=== PATIENT | female | born 1970 | race African-American/Black ===

== ENCOUNTER 2018-04-27 10:15 | Emergency (ER) | payer OTHER ==
[2018-04-27 10:21] VITALS: BP 130/87
[2018-04-27] MEDS ORDERED: DIAZEPAM INJ 10 MG/2 ML DISP.SYRIN IM ONE (11:15)
[2018-04-27] MEDS ORDERED: KETOROLAC TROMETHAMINE 60 MG/2 ML SDV IM ONE (11:15)
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
== END 2018-04-27 12:08 | disposition home or self-care (01) ==
LOC: ER 10:15
DX: T14.8XXA Other injury of unspecified body region, initial encounter (principal); M25.559 Pain in unspecified hip; M54.89 Other dorsalgia; V89.2XXA Person injured in unspecified motor-vehicle accident, traffic, initial encounter; F17.200 Nicotine dependence, unspecified, uncomplicated
CPT/HCPCS: 99283; 96372; J3360; J1885

== ENCOUNTER 2019-01-08 11:56 | Emergency (ER) | payer OTHER ==
[2019-01-08] MEDS ORDERED: IBUPROFEN 800 MG TABLET PO ONE (12:37)
[2019-01-08] MEDS ORDERED: VALACYCLOVIR HCL 500 MG TABLET PO ONE (12:37)
[2019-01-08] MEDS ORDERED: CLINDAMYCIN HCL 150 MG CAPSULE PO ONE (12:37)
--- NOTE | 2019-01-08 12:41 | ER Document Report ---
HPI - HPI Patient complains to provider of: rash Time Seen by Provider: 01/08/19 12:22 Onset: Other - 1 month Onset/Duration: Worse Quality of pain: Achy Pain Level: 4 Context: Patient complains of painful rash to scalp that has been worsening over the past month. Patient does complain of some headache pain. Patient states she has a history of abscess. Patient denies any fever. Associated Symptoms: Headache, Other - Rash to scalp. denies: Fever Exacerbated by: Denies Relieved by: Denies Similar symptoms previously: No Recently seen / treated by doctor: No - ROS ROS below otherwise negative: Yes Systems Reviewed and Negative: Yes All other systems reviewed and negative - CONSTITUTIONAL Constitutional: REPORTS: Fever - 2 DAYS AGO. DENIES: Chills - EENT EENT: DENIES: Sore Throat, Ear Pain, Eye problems - NEURO Neurology: REPORTS: Headache. DENIES: Vision blurred, Dizzinesss / Vertigo - RESPIRATORY Respiratory: DENIES: Trouble Breathing, Coughing - GASTROINTESTINAL Gastrointestinal: DENIES: Nausea - MUSCULOSKELETAL Musculoskeletal: DENIES: Extremity pain, Back Pain, Neck Pain - DERM Skin Color: Normal Skin Problems: Rash Past Medical History - General Information source: Patient - Social History Smoking Status: Current Every Day Smoker Chew tobacco use (# tins/day): No Smoking Education Provided: Yes Frequency of alcohol use: None Drug Abuse: None Occupation: health care Family History: Reviewed & Not Pertinent Patient has suicidal ideation: No Patient has homicidal ideation: No Pulmonary Medical History: Reports: Hx Asthma Renal/ Medical History: Denies: Hx Peritoneal Dialysis Past Surgical History: Reports: Hx Section, Hx Gynecologic Surgery - cervical cancer cell removal - Immunizations Immunizations up to date: No Hx Diphtheria, Pertussis, Tetanus Vaccination: Yes Vertical Provider Document - CONSTITUTIONAL Agree With Documented VS: Yes Exam Limitations: No Limitations General Appearance: WD/WN, No Apparent Distress - INFECTION CONTROL TRAVEL OUTSIDE OF THE [place] IN LAST 30 DAYS: No - HEENT HEENT: Atraumatic, Normocephalic. negative: Pharyngeal Tenderness - NECK Neck: Normal Inspection, Supple. negative: Lymphadenopathy-Left, Lymphadenopathy-Right - RESPIRATORY Respiratory: Breath Sounds Normal, No Respiratory Distress - CARDIOVASCULAR Cardiovascular: Regular Rate, Regular Rhythm - BACK Back: Normal Inspection - MUSCULOSKELETAL/EXTREMETIES Musculoskeletal/Extremeties: MAEW - NEURO Level of Consciousness: Awake, Alert, Appropriate Motor/Sensory: No Motor Deficit - DERM Integumentary: Warm, Dry, Rash - With multiple erythematous papular lesions to scalp, most concentrated to right occipital area although patient with scattered lesions to entire scalp.. negative: Abscess Course - Re-evaluation Re-evalutation: 01/08/19 12:38 Patient does report a history of abscesses in the past. Patient has papular rash that is tender worrisome for possible folliculitis although cannot exclude shingles at this time. Patient agreeable with treating for both folliculitis as well as possible shingles. Good return precautions discussed with patient. No concern for zoster ophthalmicus, abscess or meningitis at this time Discharge - Discharge Clinical Impression: Skin rash Condition: Stable Disposition: HOME, SELF-CARE Instructions: Clindamycin ([facility]), Folliculitis ([facility]), Shingles ([facility]) Additional Instructions: Return immediately for any new or worsening symptoms Followup with your primary care provider, call tomorrow to make a followup appointment Avoid scratching at the skin Prescriptions: Clindamycin HCl [Cleocin 300 mg Capsule] 300 mg PO TID #21 capsule Naproxen [Naprosyn 250 Nmg Tablet] 1 tab PO BID #14 tablet Valacyclovir HCl [Valacyclovir] 1,000 mg PO TID #21 tablet Forms: Return to Work Referrals: [facility] [Provider Group] - Follow up tomorrow
== END 2019-01-08 13:06 | disposition home or self-care (01) ==
LOC: ER 11:56
DX: R21 Rash and other nonspecific skin eruption (principal); R51 Headache; F17.200 Nicotine dependence, unspecified, uncomplicated; J45.909 Unspecified asthma, uncomplicated
CPT/HCPCS: 99282

== ENCOUNTER 2019-03-05 15:35 | Emergency (ER) | payer SELFPAY ==
--- NOTE | 2019-03-05 18:49 | ER Document Report ---
HPI - HPI Time Seen by Provider: 03/05/19 18:19 Pain Level: 5 Notes: Clinic patient is a 48-year-old female presented to the emergency department with chief complaint of multiple sores to her scalp, neck and between her breasts. Patient reports she was seen here several months ago for the same symptoms and given medication which completely cleared up. Patient reports the areas are painful and itchy. Patient denies any nausea, vomiting, diarrhea, fever or other illness. - REPRODUCTIVE Reproductive: DENIES: : Past Medical History - General Information source: Patient - Social History Smoking Status: Current Every Day Smoker Chew tobacco use (# tins/day): No Frequency of alcohol use: None Drug Abuse: None Family History: Reviewed & Not Pertinent Patient has suicidal ideation: No Patient has homicidal ideation: No Pulmonary Medical History: Reports: Hx Asthma Renal/ Medical History: Denies: Hx Peritoneal Dialysis Past Surgical History: Reports: Hx Section, Hx Gynecologic Surgery - cervical cancer cell removal - Immunizations Immunizations up to date: No Hx Diphtheria, Pertussis, Tetanus Vaccination: Yes Vertical Provider Document - CONSTITUTIONAL Notes: PHYSICAL EXAMINATION: GENERAL: Well-appearing, well-nourished and in no acute distress. HEAD: Atraumatic, normocephalic. EYES: Pupils equal round extraocular movements intact, conjunctiva are normal. ENT: Nares patent NECK: Normal range of motion LUNGS: No respiratory distress Musculoskeletal: Normal range of motion NEUROLOGICAL: Normal speech, normal gait. PSYCH: Normal mood, normal affect. SKIN: Multiple areas of erythema with pus to scalp, neck and bilateral breasts. No fluctuance noted, no drainable abscesses. - INFECTION CONTROL TRAVEL OUTSIDE OF THE [place] IN LAST 30 DAYS: No Course - Re-evaluation Re-evalutation: Patient's physical examination is most consistent with Seborrheic Dermatitis. Patient will be started on appropriate medications and plan [facility]. Patient verbalizes understanding and agreement with treatment plan. - Vital Signs Vital signs: Temp Pulse Resp BP Pulse Ox 98.5 F 81 18 137/87 H 99 03/05/19 15:50 03/05/19 15:50 03/05/19 15:50 03/05/19 15:50 03/05/19 15:50 Discharge - Discharge Clinical Impression: Acute seborrheic dermatitis Condition: Stable Disposition: HOME, SELF-CARE Additional Instructions: Seborrheic Dermatitis You have seborrheic dermatitis, commonly called seborrhea. Seborrhea is caused by a mild skin fungus. The skin becomes red and itchy with greasy scaling. It is most commonly seen over the scalp, eyebrows, ear canals, midface, and mid chest area. Initial treatment consists of: (1) application of an antifungal cream or lotion, (2) use of a cortisone cream for itching and redness, and (3) medicated shampoos. Management by a tso is advised. Selsun Shampoo Selsun shampoo contains selenium (this is different from Selsun Blue, which is available [id number]). It is toxic to fungus. Selsun is useful for dandruff, seborrheic dermatitis, and tinea versicolor. For dandruff or seborrheic dermatitis of the scalp, just use Selsun as a regular shampoo until the flaking and itching are gone. Then use it weekly to prevent recurrence. For tinea versicolor, apply the shampoo directly from the bottle onto the skin rash at night for two nights (wash it off the next morning). Wait a few weeks for results. Keep the shampoo out of the hands of children. Take medications as prescribed. [facility]. Prescriptions: Clindamycin HCl 300 mg PO TID #21 capsule Prednisone [Deltasone 20 mg Tablet] 3 tab PO DAILY 5 Days #15 tablet Forms: Return to Work
[2019-03-05] MEDS ORDERED: CLINDAMYCIN HCL 150 MG CAPSULE PO ONE (18:56)
[2019-03-05 19:16] VITALS: BP 145/96
== END 2019-03-05 19:17 | disposition home or self-care (01) ==
LOC: ER 15:35
DX: F17.200 Nicotine dependence, unspecified, uncomplicated (principal); L21.9 Seborrheic dermatitis, unspecified; J45.909 Unspecified asthma, uncomplicated
CPT/HCPCS: 99282

== ENCOUNTER 2020-04-01 17:54 | Emergency (ER) | payer SELFPAY ==
--- NOTE | 2020-04-01 18:46 | ER Document Report ---
ED Medical Screen (RME) - General Chief Complaint: Bloody Stools Stated Complaint: ABDOMINAL PAIN,BLOODY STOOLS Time Seen by Provider: 04/01/20 18:42 Mode of Arrival: Ambulatory Information source: Patient Notes: Patient is a 49-year-old female comes emergency room complaining of having blood in her stool earlier this morning. Patient states that the first time she is ever seen blood in her poop. But she is also here today because she has had 2-3 on month going abdominal pain off and on. She rates her pain a 4 out of 5 currently. Patient states that it feels like her whole lower abdomen is going to come out. She has had nausea without vomiting. She has had no back pain with this. Patient works as a [employer] for hospital. Physical examination: Patient is a well-nourished well-developed overweight 49-year-old female who is no apparent distress on examination today. Cardiac: Regular rate and rhythm no murmurs. Lungs: Bilateral breath sounds with breath sounds increased clear to auscultation. Abdomen: In a sitting position patient has moderate right upper quad tenderness to palpation. Questionable Felipe sign in this position. She also displays some mild periumbilical tenderness to palpation in the sitting position as well. Next line I have greeted and performed a rapid initial assessment of this patient. A comprehensive ED assessment and evaluation of the patient, analysis of test results and completion of the medical decision making process will be conducted by additional ED providers. Dictation of this chart was performed using voice recognition software; therefore, there may be some unintended grammatical errors. TRAVEL OUTSIDE OF THE [place] IN LAST 30 DAYS: No - Related Data Allergies/Adverse Reactions: codeine [Codeine] Allergy (Verified 04/01/20 18:33) Penicillins Allergy (Verified 04/01/20 18:33) tetracycline [Tetracycline] Allergy (Verified 04/01/20 18:33) Past Medical History - Social History Chew tobacco use (# tins/day): No Frequency of alcohol use: None Drug Abuse: None Pulmonary Medical History: Reports: Hx Asthma Renal/ Medical History: Denies: Hx Peritoneal Dialysis Past Surgical History: Reports: Hx Section, Hx Gynecologic Surgery - cervical cancer cell removal - Immunizations Immunizations up to date: No Hx Diphtheria, Pertussis, Tetanus Vaccination: Yes Physical Exam - Vital signs Vitals: Temp Pulse Resp BP Pulse Ox 98.0 F 78 18 132/90 H 100 04/01/20 18:00 04/01/20 18:00 04/01/20 18:00 04/01/20 18:00 04/01/20 18:00 Course - Vital Signs Vital signs: Temp Pulse Resp BP Pulse Ox 98.0 F 78 18 132/90 H 100 04/01/20 18:00 04/01/20 18:00 04/01/20 18:00 04/01/20 18:00 04/01/20 18:00
--- NOTE | 2020-04-01 19:17 | RADIOLOGY REPORT (SQ) ---
EXAM DESCRIPTION: CT ABD/PELVIS NO ORAL OR IV IMAGES COMPLETED DATE/TIME: 04/01/2020 5:56 pm REASON FOR STUDY: Abdominal pain. Diffuse abdominal pain. COMPARISON: None. TECHNIQUE: CT scan of the abdomen and pelvis performed without intravenous or oral contrast. Images reviewed with lung, soft tissue, and bone windows. Reconstructed coronal and sagittal MPR images revi ewed. All images stored on PACS. All CT scanners at this facility use dose modulation, iterative reconstruction, and/or weight based d osing when appropriate to reduce radiation dose to as low as reasonably achievable (ALARA). [facility]: Dose Right [facility]: CareDose [facility]: Dose Right [facility]: Teradose 4D [facility]: Smart Technologies RADIATION DOSE: CT Rad equipment meets quality standard of care and radiation dose reduction techniq ues were employed. CTDIvol: 17.4 mGy. DLP: 919 mGy-cm.mGy. LIMITATIONS: None. FINDINGS: LOWER CHEST: No significant findings. No nodules or infiltrates. NON-CONTRASTED LIVER, SPLEEN, ADRENALS: Evaluation limited by lack of IV contrast. No identified sign ificant masses. PANCREAS: No masses. No peripancreatic inflammatory changes. GALLBLADDER: No identified stones by CT criteria. No inflammatory changes to suggest cholecystitis. RIGHT KIDNEY AND URETER: No suspicious masses. Assessment limited by lack of IV contrast. No signif icant calcifications. No hydronephrosis or hydroureter. LEFT KIDNEY AND URETER: No suspicious masses. Assessment limited by lack of IV contrast. No signifi cant calcifications. No hydronephrosis or hydroureter. AORTA AND RETROPERITONEUM: No aneurysm. No retroperitoneal masses or adenopathy. BOWEL AND PERITONEAL CAVITY: No obvious masses or inflammatory changes. No free fluid. APPENDIX: Normal. PELVIS, BLADDER, AND ABDOMINAL WALL:No abnormal masses. No free fluid. Bladder normal. BONES: No significant findings. OTHER: No other significant finding. IMPRESSION: NO SIGNIFICANT OR ACUTE PROCESS IN THE ABDOMEN OR PELVIS. COMMENT: Quality ID # [id number]: Final reports with documentation of one or more dose reduction techniques (e.g., Automated exposure control, adjustment of the mA and/or kV according to patient size, use of iterative reconstruction technique) TECHNICAL DOCUMENTATION: JOB ID: [id number] [email or web address]- All Rights Reserved Reading location - IP/workstation name: [email or web address]
[2020-04-01 19:39] LABS: ABSOLUTE BASOPHILS # (AUTO) 0.1 10^3/uL (0.0-0.2); ABSOLUTE EOSINOPHILS # (AUTO) 0.2 10^3/uL (0.0-0.6); ABSOLUTE LYMPHOCYTES (AUTO) 4.3 10^3/uL (0.5-4.7); ABSOLUTE MONOCYTES (AUTO) 0.7 10^3/uL (0.1-1.4); BASOPHILS % (AUTO) 1.2 % (0-2); EOSINOPHILS % (AUTO) 1.9 % (0-6); HEMATOCRIT 45.9 % (36.0-47.0); LYMPHOCYTES % (AUTO) 51.8 % (13-45); MEAN CORPUSCULAR HEMOGLOBIN 24.7 pg (27.0-33.4); MEAN CORPUSCULAR HGB CONC 32.7 g/dL (32.0-36.0); MEAN CORPUSCULAR VOLUME 76 fl (80-97); PLATELET COUNT 273 10^3/uL (150-450); RED BLOOD COUNT 6.07 10^6/uL (3.72-5.28); RED CELL DISTRIBUTION WIDTH 15.9 % (11.5-14.0); SEGMENTED NEUTROPHILS % (AUTO) 36.1 % (42-78); TOTAL CELLS COUNTED % (AUTO) 100 %; WHITE BLOOD COUNT 8.3 10^3/uL (4.0-10.5)
[2020-04-01 19:47] LABS: AMORPHOUS SEDIMENT,URINE TRACE /HPF; APPEARANCE,URINE SLIGHTLY-CLOUDY; BILIRUBIN,URINE NEGATIVE (NEGATIVE); COLOR,URINE YELLOW; GLUCOSE, URINE NEGATIVE (NEGATIVE); KETONES,URINE TRACE mg/dL (NEGATIVE); LEUKOCYTE ESTERASE,URINE NEGATIVE (NEGATIVE); NITRITE,URINE NEGATIVE (NEGATIVE); PROTEIN,URINE NEGATIVE (NEGATIVE); URINE SPECIFIC GRAVITY 1.026; UROBILINOGEN,URINE NEGATIVE mg/dL (<2.0)
[2020-04-01 20:13] LABS: ALBUMIN 4.5 g/dL (3.5-5.0); ALKALINE PHOSPHATASE 109 U/L (38-126); ANION GAP 6 (5-19); ASPARTATE AMINO TRANSFERASE 31 U/L (14-36); BILIRUBIN,DIRECT 0.1 mg/dL (0.0-0.4); BILIRUBIN,TOTAL 0.5 mg/dL (0.2-1.3); BLOOD UREA NITROGEN 13 mg/dL (7-20); CALCIUM 11.1 mg/dL (8.4-10.2); CARBON DIOXIDE 24 mmol/L (22-30); CHLORIDE 106 mmol/L (98-107); GLUCOSE 93 mg/dL (75-110); POTASSIUM 4.6 mmol/L (3.6-5.0); TOTAL PROTEIN 8.5 g/dL (6.3-8.2)
[2020-04-01] MEDS ORDERED: KETOROLAC TROMETHAMINE INJ/PF 30 MG/1 ML SDV IV ONE (20:17)
[2020-04-01] MEDS ORDERED: METOCLOPRAMIDE HCL INJ/PF 10 MG/2 ML SDV IV ONE (20:18)
[2020-04-01 21:29] VITALS: BP 129/83
--- NOTE | 2020-04-02 05:55 | ER Document Report ---
Entered by PAGE BOYER SCRIBE 04/01/202018 Acting as scribe for:[facility], MD ED GI/ - General Chief Complaint: Bloody Stools Stated Complaint: ABDOMINAL PAIN,BLOODY STOOLS Time Seen by Provider: 04/01/20 18:42 Primary Care Provider: [facility] [Primary Care Provider] - Follow up as needed Mode of Arrival: Ambulatory Information source: Patient Notes: This 49 year old female patient presents to the ED today with complaints of intermittent generalized abdominal pain for the past x1 year, worse today. Patient describes the pain as a cramping sensation that is worse on the left side of her abdomen. Patient mentions that she noticed bright red blood in her stool this morning, which has never happened before. She reports normal bowel movements every day except for this morning. Denies nausea or vomiting. She goes to the [facility]. TRAVEL OUTSIDE OF THE [place] IN LAST 30 DAYS: No - Related Data Allergies/Adverse Reactions: codeine [Codeine] Allergy (Verified 04/01/20 18:33) Penicillins Allergy (Verified 04/01/20 18:33) tetracycline [Tetracycline] Allergy (Verified 04/01/20 18:33) Past Medical History - General Information source: Patient - Social History Smoking Status: Former Smoker Cigarette use (# per day): No Chew tobacco use (# tins/day): No Smoking Education Provided: No Frequency of alcohol use: None Drug Abuse: None Family History: Reviewed & Not Pertinent Patient has suicidal ideation: No Patient has homicidal ideation: No Pulmonary Medical History: Reports: Hx Asthma Past Surgical History: Reports: Hx Section, Hx Gynecologic Surgery - cervical cancer cell removal - Immunizations Immunizations up to date: No Hx Diphtheria, Pertussis, Tetanus Vaccination: Yes Review of Systems - Review of Systems Constitutional: No symptoms reported EENT: No symptoms reported Cardiovascular: No symptoms reported Respiratory: No symptoms reported Gastrointestinal: No symptoms reported, See HPI, Abdominal pain, Blood streaked bowels. denies: Nausea, Vomiting, Black stools Genitourinary: No symptoms reported Female Genitourinary: No symptoms reported Musculoskeletal: No symptoms reported Skin: No symptoms reported Hematologic/Lymphatic: No symptoms reported Neurological/Psychological: No symptoms reported -: Yes All other systems reviewed and negative Physical Exam - Vital signs Vitals: Temp Pulse Resp BP Pulse Ox 98.0 F 78 18 132/90 H 100 04/01/20 18:00 04/01/20 18:00 04/01/20 18:00 04/01/20 18:00 04/01/20 18:00 - General General appearance: Appears well, Alert In distress: None - HEENT Head: Normocephalic, Atraumatic Eyes: Normal Pupils: PERRL - Respiratory Respiratory status: No respiratory distress Chest status: Nontender Breath sounds: Normal Chest palpation: Normal - Cardiovascular Rhythm: Regular Heart sounds: Normal auscultation Murmur: No Friction rub: No Gallop: None auscultated - Abdominal Inspection: Normal Distension: No distension Bowel sounds: Normal Tenderness: Nontender - Abdomen soft, Other - Patient complains of diffuse tenderness, but the pain could not be reproduced with palpation Organomegaly: No organomegaly - Rectal Stool: Heme negative Hemorrhoids: External 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 All questions were answered prior to discharge. Emergency signs and symptoms, reasons to return to the emergency department discussed with patient. - Vital Signs Vital signs: Temp Pulse Resp BP Pulse Ox 98.0 F 78 18 132/90 H 100 04/01/20 18:00 04/01/20 18:00 04/01/20 18:00 04/01/20 18:00 04/01/20 18:00 - Laboratory Result Diagrams: 04/01/20 19:21 04/01/20 19:21 Laboratory results interpreted by me: 04/01/20 04/01/20 04/01/20 19:21 19:21 19:21 RBC 6.07 H MCV 76 L MCH 24.7 L RDW 15.9 H Lymph % (Auto) 51.8 H Seg Neutrophils % 36.1 L Sodium 135.9 L Calcium 11.1 H Total Protein 8.5 H Urine Ketones TRACE H Urine Blood SMALL H - Diagnostic Test Radiology reviewed: Reports reviewed Discharge - Discharge Clinical Impression: Abdominal cramps, External hemorrhoids, Passage of bloody stools Condition: Good Disposition: HOME, SELF-CARE Additional Instructions: Return to the Emergency Department without delay if any worse. Call Dr. Laura with gastroenterology to arrange follow up appointment if symptoms persist. HOME CARE INSTRUCTIONS & INFORMATION: Thank you for choosing us for your medical needs. We hope you're satisfied with the care you received. After you leave, you must properly care for your problem and, at the same time, observe its progress. Any condition can change. Some illnesses can change rapidly over hours or days. If your condition worsens, return to the Emergency Department or see your physician promptly. ABOUT YOUR X-RAYS AND EKG'S: If you had an EKG or X-rays taken, they have been read by the Emergency Physician. The X-rays and EKG's will also be read by a Radiologist or Transitional Care Manager within 24 hours. If discrepancies are noted, you will be notified by telephone. Please be certain the ED has a correct telephone number & address where you can be reached. Also, realize that some fractures or abnormalities do not show up on initial X-rays. If your symptoms continue, see your physician. ABOUT YOUR LABORATORY TEST: If you had laboratory tests, the results have been reviewed by the Emergency Physician. Some test results (for example cultures) may not be available for several days. You will be contacted if any test result shows you need additional treatment. Please be certain the ED has a correct telephone number and address where you can be reached. ABOUT YOUR MEDICATIONS: You will receive instructions on how to take your medicine on the prescription label you receive. Additional information may be provided by the Pharmacy. If you have questions afterwards, call the ED for clarification or further instructions. Some prescribed medications may cause drowsiness. Do not perform tasks such as driving a car or operating machinery without consulting your Pharmacist. If you feel you need a refill of pain medication, your condition will need re-evaluation. Please do not call for a r efill of any medication. ABOUT YOUR SIGNATURE: Signature of this document acknowledges to followin. Understanding that you received emergency treatment and that you may be released before al medical problems are known or treated. Please be certain the ED has a correct phone number & address where you can be reached. 2. Acknowledgement that you will arrange for follow-up care as recommended. 3. Authorization for the Emergency Physician to provide information to your follow-up Physician in order to maximize your care. AT ANY TIME, IF YOUR SYMPTOMS CHANGE SIGNIFICANTLY OR WORSEN OR YOU DEVELOP NEW SYMPTOMS, RETURN TO THE EMERGENCY DEPARTMENT IMMEDIATELY FOR RE-EVALUATION. OUR GOAL IS TO PROVIDE EXCELLENT MEDICAL CARE! WE HOPE THAT WE HAVE MET YOUR EXPECTATIONS DURING YOUR EMERGENCY DEPARTMENT VISIT AND THAT YOU FEEL YOU HAVE RECEIVED EXCELLENT CARE! Abdominal Pain There are many causes of abdominal pain. Pain can mean a serious problem requiring surgery (such as appendicitis). It can also be an innocent problem that goes away on its own (such as a viral infection). Often, time must pass to determine the cause of pain. The physician does not feel that hospitalization is necessary, at present. Things may change within the next 24 hours. Call the doctor or come back for re- examination if any problems occur, such as: (1) Pain that becomes more severe, steady, or becomes concentrated in one specific area. Also, pain that is more severe with movement or coughing. (2) Vomiting that persists or becomes more frequent. (3) Blood in the vomitus, urine, or bowel movements. Blood in the stool may have a tarry or black appearance. (4) Shaking chills or fever greater than 100 degrees F. (5) The abdomen becomes more distended or swollen. (6) Bowel movements cease. (7) Failure to improve as expected. Hemorrhoids You have hemorrhoids. These are formed by enlargement of veins around the anus. The cause is increased pressure in the veins, from or straining at bowel movements. Hemorrhoids often cause itching and bleeding with bowel movements. When a hemorrhoid becomes clotted, severe pain and swelling result. Soothing creams and suppositories are often prescribed. Warm sitz-baths may also decrease pain, swelling, and itching. Eat a high-fiber diet. Stool softeners such as Metamucil will help. Keep the area very clean. Medicated cleansing pads (such as Tucks) are useful after bowel movements. A hose-mounted shower unit (like a shower massager at low water pressure) can be used to clean around tender hemorrhoid tags. You should call the doctor or return if you develop fever, increasing pain, or an enlarging mass around the anus, or if you simply fail to improve with treatment. Prescriptions: Metoclopramide HCl [Reglan 10 mg Tablet] 10 mg PO Q6HP PRN #12 tablet PRN Reason: abdominal cramps Forms: Return to Work Referrals: [facility] [Primary Care Provider] - Follow up as needed VINCENZO LAURA MD [ACTIVE STAFF] - 04/04/20 (call 04/04/20 to arrange follow up appointment ) I personally performed the services described in the documentation, reviewed and edited the documentation which was dictated to the scribe in my presence, and it accurately records my words and actions.
== END 2020-04-01 21:28 | disposition home or self-care (01) ==
LOC: ER 17:54
DX: K64.4 Residual hemorrhoidal skin tags (principal); R10.9 Unspecified abdominal pain; R19.5 Other fecal abnormalities; R10.84 Generalized abdominal pain; Z88.0 Allergy status to penicillin; Z88.8 Allergy status to other drugs, medicaments and biological substances; Z87.891 Personal history of nicotine dependence; J45.909 Unspecified asthma, uncomplicated
CPT/HCPCS: 99284; 96374; 96375; 36415; 87086; 83690; 85025; 80053; 81001; 74176; J1885; J2765

== ENCOUNTER → 2020-08-12 | Outpatient (CLI) | payer OTHER ==
[2020-08-12 11:44] LABS: ABSOLUTE BASOPHILS # (AUTO) 0.1 10^3/uL (0.0-0.2); ABSOLUTE EOSINOPHILS # (AUTO) 0.1 10^3/uL (0.0-0.6); ABSOLUTE LYMPHOCYTES (AUTO) 3.5 10^3/uL (0.5-4.7); ABSOLUTE MONOCYTES (AUTO) 0.6 10^3/uL (0.1-1.4); ABSOLUTE NEUT (AUTO) 2.8 10^3/uL (1.7-8.2); BASOPHILS % (AUTO) 1.2 % (0-2); EOSINOPHILS % (AUTO) 1.8 % (0-6); HEMATOCRIT 47.5 % (36.0-47.0); HEMOGLOBIN 15.6 g/dL (12.0-15.5); LYMPHOCYTES % (AUTO) 49.5 % (13-45); MEAN CORPUSCULAR HEMOGLOBIN 24.7 pg (27.0-33.4); MEAN CORPUSCULAR HGB CONC 32.7 g/dL (32.0-36.0); MEAN CORPUSCULAR VOLUME 76 fl (80-97); MONOCYTES % (AUTO) 8.4 % (3-13); PLATELET COUNT 282 10^3/uL (150-450); RED BLOOD COUNT 6.29 10^6/uL (3.72-5.28); RED CELL DISTRIBUTION WIDTH 16.5 % (11.5-14.0); SEGMENTED NEUTROPHILS % (AUTO) 39.1 % (42-78); TOTAL CELLS COUNTED % (AUTO) 100 %; WHITE BLOOD COUNT 7.2 10^3/uL (4.0-10.5)
[2020-08-12 12:05] LABS: ALBUMIN 4.5 g/dL (3.5-5.0); ALKALINE PHOSPHATASE 113 U/L (38-126); ANION GAP 7 (5-19); ASPARTATE AMINO TRANSFERASE 38 U/L (14-36); BILIRUBIN,DIRECT 0.1 mg/dL (0.0-0.4); BILIRUBIN,TOTAL 0.4 mg/dL (0.2-1.3); BLOOD UREA NITROGEN 10 mg/dL (7-20); CARBON DIOXIDE 25 mmol/L (22-30); CHLORIDE 105 mmol/L (98-107); CHOLESTEROL 251.21 mg/dL (0-200); GLUCOSE 96 mg/dL (75-110); POTASSIUM 4.9 mmol/L (3.6-5.0); TOTAL PROTEIN 8.2 g/dL (6.3-8.2); TRIGLYCERIDES 135 mg/dL (<150)
[2020-08-12 12:22] LABS: DIRECT LDL 170 mg/dL (<100)
== END ==
LOC: CCC 10:53
PROVIDERS: ATTEND Family Medicine
DX: E04.9 Nontoxic goiter, unspecified (principal); J45.909 Unspecified asthma, uncomplicated
CPT/HCPCS: 36415; 80053; 80061; 83036; 84443; 85025

== ENCOUNTER → 2020-09-23 | Outpatient (CLI) | payer BC ==
--- NOTE | 2020-09-23 13:48 | RADIOLOGY REPORT (SQ) ---
EXAM DESCRIPTION: ABDOMEN 2 VIEWS IMAGES COMPLETED DATE/TIME: 09/23/2020 1:35 pm REASON FOR STUDY: ABDOMINAL PAIN COMPARISON: None. NUMBER OF VIEWS: Two views. TECHNIQUE: Supine and erect/decubitus radiographic images of the abdomen acquired. LIMITATIONS: None. FINDINGS: FREE AIR: None. No abnormal gas collections. LUNG BASES: Clear. BOWEL GAS PATTERN: Nonobstructive pattern. No dilated loops or air fluid levels. CALCIFICATIONS: No suspicious calcifications. Punctate calcific densities overlie pelvis, likely phl eboliths. SOFT TISSUES: No gross mass or suggestion of organomegaly. HARDWARE: None in the abdomen. BONES: No acute fracture. No suspicious osseous lesions. Lower lumbar spondylosis. OTHER: Obesity. IMPRESSION: NO RADIOGRAPHIC EVIDENCE FOR ACUTE ABDOMINAL DISEASE. TECHNICAL DOCUMENTATION: JOB ID: [id number] [email or web address]- All Rights Reserved Reading location - IP/workstation name: [email or web address]
== END ==
LOC: RAD 13:13
PROVIDERS: ATTEND Physician Assistant
DX: R10.9 Unspecified abdominal pain (principal); E66.9 Obesity, unspecified
CPT/HCPCS: 74019